=== PATIENT | male | born 2000 | race Caucasian/White ===

== ENCOUNTER 2024-11-25 21:00 | Emergency (ER) | payer BC, SELFPAY ==
[2024-11-25 21:43] VITALS: BP 135/89; PULSE 130; RESP 18; TEMP 37.1; O2SAT 96; BMI 26.6
[2024-11-25 22:32] LABS: PCR FLU A POSITIVE PCR FLU A (Negative); PCR FLU B Negative PCR FLU B (Negative); PCR RSV Negative PCR RSV (Negative); SARS PCR* Negative SARS-CoV-2 (Negative)
--- NOTE | 2024-11-25 22:36 | ED.GENADULT ---
HPI - General Adult General Time Seen by Provider: 22:36 Date Seen: 11/25/24 Chief complaint: Cough Stated complaint: cough/chest feels tight Time Seen by Provider: 11/25/24 22:36 Source: patient, RN notes reviewed and old records reviewed Mode of arrival: ambulatory Limitations: no limitations History of Present Illness HPI narrative: Israel is a very pleasant 24-year-old male with recent history as suspected pertusses a month ago who comes to the emergency room with onset of sore throat cough yesterday. He also notes he had a fever up to 101. He has not taken any ibuprofen because he states he is allergic to it. He is also not taken any Tylenol but is able to do that. He had an episode of vomiting earlier today, no evidence of diarrhea. He does not have a history of underlying asthma. Related Data Allergies Allergy/AdvReac Type Severity Reaction Status Date / Time ibuprofen AdvReac Severe Anaphylaxis Verified 11/25/24 21:49 Review of Systems Status of ROS: Reports: 10 or more systems reviewed and unremarkable except as noted in History and below Const: Reports: fever, chills and fatigue Eyes: Denies: change in vision ENMT: Reports: throat pain and nasal congestion; Denies: neck pain or hoarseness Cardio: Reports: chest pain and shortness of breath with exertion Resp: Reports: shortness of breath, cough and wheezing GI: Reports: abdominal pain, nausea and vomiting; Denies: diarrhea : Denies: painful urination Musculo: Denies: neck pain Integ/Breast: Denies: rash Neuro: Reports: headache; Denies: numbness in extremities Endo: Reports: fatigue Allergy/Immuno: Reports: wheezing PFSH PFSH Social History Smoking Status: Never smoker How often do you have a drink containing alcohol: never AUDIT-C Alcohol total score: 0 Non-prescribed substance use: denies use Exam Narrative: Exam Narrative: Alert and oriented. A notable cough when I enter the room. Eyes are clear. TMs without erythema or fluid. Oral cavity with moist mucous membranes. Neck is supple without lymphadenopathy. Heart is with a tachycardic rate but normal rhythm. Lung sounds show wheezing expiratory throughout. No obvious crackles. Abdomen soft nontender. Moving all extremities. Const: Vital Signs, click to edit/add: Vital Signs - 24 hr 11/25/24 21:43 Temperature 98.8 F Pulse Rate [Right Pulse Oximeter] 130 H Respiratory Rate 18 Blood Pressure [Ri ght Upper Arm] 135/89 Pulse Oximetry 96 Oxygen Delivery Me thod Room Air Documenting provider has reviewed patient's vital signs: yes Course Course ED Course: Patient had a chest x-ray and labs done prior to being seen. He has tested positive for influenza a, negative for COVID and RSV. His chest x-ray is without evidence of infiltrate. At this time will give him 1 g of Tylenol, Zofran 4 mg ODT as well as an albuterol nebulizer. Reevaluation(s) Reevaluation #1: Patient feeling a lot better after Tylenol and nebulizer. Re-examination of lung shows free air movement. Wheezing has resolved. Patient noted 1 episode of vomiting after the initial Zofran but has been able to keep water down since that time as well as some crackers. States he is feeling a lot better. Vital Signs Vital signs: Initial Vital Signs Temperature 98.8 F 11/25/24 21:43 Temperature Source Temporal Artery Scan 11/25/24 21:43 Pulse Rate 130 H 11/25/24 21:43 Pulse Rhythm Regular 11/25/24 21:43 Pulse Strength 3+ Normal 11/25/24 21:43 Respiratory Rate 18 11/25/24 21:43 Blood Pressure 135/89 11/25/24 21:43 Blood Pressure Mean 104 11/25/24 21:43 Blood Pressure Position Supine 11/25/24 21:43 Pulse Oximetry 96 11/25/24 21:43 Oxygen Delivery Method Room Air 11/25/24 21:43 Vital Signs Temperature 98.8 F 11/25/24 21:43 Pulse Rate 130 H 11/25/24 21:43 Respiratory Rate 18 11/25/24 21:43 Blood Pressure 135/89 11/25/24 21:43 Pulse Oximetry 96 11/25/24 21:43 Oxygen Delivery Method Room Air 11/25/24 21:43 Temperature 98.8 F 11/25/24 21:43 Pulse Rate 130 H 11/25/24 21:43 Respiratory Rate 18 11/25/24 21:43 Blood Pressure 135/89 11/25/24 21:43 Pulse Oximetry 96 11/25/24 21:43 Oxygen Delivery Method Room Air 11/25/24 21:43 Medications Administered Medications: Discontinued Medications Generic Name Dose Route Start Last Admin Trade Name Yessi PRN Reason Stop Dose Admin Acetaminophen 1,000 mg 11/25/24 22:43 11/25/24 23:25 Acetaminophen 500 Mg Tablet PO 11/25/24 22:44 1,000 mg ONCE ONE Administration Albuterol 2.5 mg 11/25/24 22:43 11/25/24 23:11 Albuterol Sulfate 2.5 Mg/3 Ml Vial.Neb NEB 11/25/24 22:44 2.5 mg ONCE ONE Administration Ondansetron HCl 4 mg 11/25/24 22:43 11/25/24 23:10 Ondansetron Odt 4 Mg Tab PO 11/25/24 22:44 4 mg ONCE ONE Administration Medical Decision Making MDM Narrative Medical decision making narrative: 1. Influenza a-discussed the use of Tamiflu. Symptoms started yesterday so clearly he is within a time frame that this would be therapeutic for him. Also discussed the use of Tylenol every 6 hours as needed for fever or discomfort. Importance of rest and pushing fluids also discussed. He has an albuterol inhaler at home that he may use as needed. Seek medical attention for worsening symptoms. Cautioned band about Tylenol use as he is unable to take ibuprofen. He would be limited to 4000 mg daily. Did discuss with him that medications such as NyQuil already have Tylenol and that he will need to read the bottles. 2. Nausea vomiting-Zofran did seem to work for him in the ED. Will dispense a few tablets for him to use at home. 3. Disposition-home at this time. Seek medical attention for worsening symptoms. Lab Data Lab results reviewed: Yes I reviewed the patient's lab results Labs: Lab Results 11/25/24 Range/Units 21:48 SARS-CoV-2 (PCR) Negative SARS-CoV-2 (Negative) Influenza Type A (PCR) POSITIVE PCR FLU A A (Negative) Influenza Type B (PCR) Negative PCR FLU B (Negative) RSV (PCR) Negative PCR RSV (Negative) Imaging Data Chest x-ray: Attestation: I have reviewed the pertinent imaging results. My impression: I do not note any infiltrates. Radiologist's impression: Mediastinum: The mediastinum is normal in appearance. The heart silhouette is normal in size and morphology. Lung: Both lungs are unremarkable in appearance. No sign of pleural effusion seen. No pneumothorax is identified. Bone and Soft tissue: Unremarkable for age. IMPRESSION: 1. No acute cardiopulmonary disease is seen. Discharge Plan Discharge Clinical Impression: Influenza A Patient Disposition: Home, Self-Care Condition: Improved Additional Instructions: Start Tamiflu, the antiviral medication for influenza tonight. Unfortunately, this can cause some nausea. You should be okay if you use the Zofran 1st. It is okay if you do not eat too need to push fluids as much as possible. Use your inhaler every 4 hours as needed. Return to the emergency room for worsening symptoms and as needed. Follow Up/Referrals: Provider,Not a Local [Primary Care Provider] - Stand Alone Forms: [email or web address] Info Instructions
[2024-11-25] MEDS: ONDANSETRON ODT 4 MG TAB PO (23:10)
[2024-11-25] MEDS: ALBUTEROL SULFATE 2.5 MG/3 ML VIAL.NEB NEB (23:11)
[2024-11-25] MEDS: ACETAMINOPHEN 500 MG TABLET 1000 MG PO (23:25)
== END 2024-11-25 23:55 | disposition home or self-care (01) ==
PROVIDERS: Emergency Provider Family Medicine
DX: J09.X2 Influenza due to identified novel influenza A virus with other respiratory manifestations (principal)
CPT/HCPCS: 71046; 87631; 94640; 99284; A9270

== ENCOUNTER 2024-12-23 13:30 | Emergency (ER) | payer OTHER, BC, SELFPAY ==
--- OUTSIDE RECORDS SUMMARY | 2024-12-23 13:33 | XMS_ITS | Clinical Summary ---
Author Organization [facility] [email or web address] [facility] Address [address] [address] Phone Care Team Providers Care Director Of Business Services Name Role Phone Unavailable Primary Care Provider Unavailabl e Allergies Active Allergy Reactions Criticality Noted Date Comments Ibuprofen Swelling Medium 12/09/2019 Medications No known medications Immunizations Name Administration Dates Next Due Influenza Quad Preservative Free 10/16/2020 Social History Tobacco Use Types Packs/Day Years Used Date Smoking Tobacco: Never Smokeless Tobacco: Current Chew Overall Financial Resource Strain (CARDIA) Answe r Date Recorded How hard is it for you to pa y for the very basics like food, housing, medical care, and heating? Not hard at all 10/16/2020 PHQ-2 Answer Date Recorded PHQ-2 Total 0 10/16/2020 Hunger Vital Sign Answer Date Recorded Within the past 12 months, y ou worried that your food would run out before you got the money to buy more. Never true 10/16/20 20 Within the past 12 months, t he food you bought just didn't last and you didn't have money to get more. Never true 10/16/2020 PRAPARE - Transportation Answer Date Re corded In the past 12 months, has l ack of transportation kept you from medical appointments or from getting medications? No 09/29 In the past 12 months, has l ack of transportation kept you from meetings, work, or from getting things needed for daily living? No 10/16/2020 Sex and Gender Information Value Date Recorded Sex Assigned at Not on file Legal Sex Male 10:30 PM [employer]SULTANT Gender Identity Not on file Sexual Orientation Not on file Obstetrics History Last Filed Vital Signs Vital Sign Reading Time Taken Comments Blood Pressure 122/76 10/16/2020 2:38 PM [employer] WORK[employer]SULTANT Pulse 72 10/16/2020 2:38 PM [employer] WORK[employer] CONSULTANT Temperature 36.7 C (98.1 F) 10/16/2020 2:38 PM [employer] WORK[employer] CONSULTANT Respiratory Rate 14 12/09/2019 10:39 PM [employer] WORK[employer] CONSULTANT Oxygen Saturation 96% 10/16/2020 2:38 PM [employer] WORK[employer] CONSULTANT Inhaled Oxygen Concentration - - Weight 65.5 kg (144 lb 6.4 oz) 10/16/2020 2:38 P M [employer] WORK[employer] CONSULTANT Height 173.4 cm (5' 8.25) 10/16/2020 2:38 PM CS T Body Mass Index 21.8 10/16/2020 2:38 PM [employer] WORK[employer] CONSULTANT Plan of Treatment Health Maintenance Due Date Last Done Comments HPV Vaccine (Standing Order) (1 - Male 3-dose series) 2017 Meningococcal B Vaccine (Sta nding Order) (1 of 2 - Standard) 2018 Hepatitis B Vaccine (Standin g Order) (1 of 3 - 19+ 3-dose series) 2021 PERTUSSIS (Standing Order) 2021 TETANUS (Standing Order) 2021 COVID-19 Vaccine (2023-2 5 season) 2024 Influenza Vaccine Seasonal (Standing Order) (#1) 2024 10/16/2020 Pneumococcal/PCV20 Vaccine: Pediatrics (2-5 yrs) and At-Risk Patients (6-49 yrs) (Standing Order) Aged Out No longer eligible b ased on patient's age to complete this topic Insurance [facility] Commercial Address: [facility] [address] [place] [address] [facility] Commercial Address: [facility] [id number] [place] [id number]
--- OUTSIDE RECORDS SUMMARY | 2024-12-23 13:33 | XMS_ITS | Clinical Summary ---
Author Organization [facility] Address [address] [place] [id number] Care Team Providers Care Associate Teacher Name Role Phone Clinic, [facility] Primary Care Pr ovider Allergies Active Allergy Reactions Criticality Noted Date Comments Ibuprofen Edema Medications No known medications Active Problems Problem Noted Date Diagnosed Date Closed fracture of distal en d of left radius with routine healing 03/14/2017 Encounters Date Type Department Care Team Description 12/23/2024 12:20 PM CHIP SILO TENDER Office Visit [facility] [address] [address] Breathing Problem; Occ Med (12/14/2023) 12/23/2024 Travel 11/14/2024 10:30 AM CHIP SILO TENDER Ancillary Procedure [facility] [address] [facility] [address] [place] [address] 11/14/2024 9:55 AM CHIP SILO TENDER Office Visit [facility] [address] [address] Julia Hood PA Cough (Going on for a month. ) 11/14/2024 Travel 11/14/2024 Nurse Triage [facility] [address] [place] [address] Pcp, No Cough from Last 3 Months Immunizations Name Administration Dates Next Due DTaP 06/28/2007, 3,2002,08/20,2002 HIB PRP-OMP (PedvaxHIB) 2002 HIB-HepB (Comvax) 01/23/2003,2002 Hepatitis B (Peds) 06/20/2014 Inactivated Polio Vaccine 06/28/2007,,2002,06/14 Influenza, IIV3 (Age 6-35 mos) 10/15/2003 MENINGOCOCCAL VACCINE 2 VIAL [id number] (MENVEO) 06/21/2018,06/20/2014 MMR 06/28/2007,05/12/2003 Pneumococcal conj 7-Valent (Prevnar 7) 1 ,2002,2002,06/14 Tdap 06/20/2014 Varicella Vaccine 06/20/2014,11/06/2012 Family History Medical History Relation Name Comments Good Health Brother Good Health Father Good Health Mother Good Health Sister Relation Name Status Comments Brother Father Mother Sister Social History Tobacco Use Types Packs/Day Years Used Date Smoking Tobacco: Some Days Cigarettes Smokeless Tobacco: Never Tobacco Cessation:Ready to Q uit: Not Asked; Counseling Given: Not Answered Comments:no exposure Alcohol Use Standard Drinks/Week Comments Yes 0 (1 standard drink = 0.6 oz pur e alcohol) PHQ-2 Answer Date Recorded PHQ-2 TOTAL SCORE 0 09/20/2021 Social Connections Answer Date Recorded Frequency of Communication with Friends and Fami ly Not on file 10/30/2021 Financial Resource Strain Answer Date R ecorded Difficulty of Paying Living Expenses Not on file 10/30/2021 Difficulty of Paying Living Expenses Not on file 10/30/2021 Sex and Gender Information Value Date Recorded Sex Assigned at Not on file Legal Sex Male 5:46 AM CHIP SILO TENDER Gender Identity Not on file Sexual Orientation Not on file Obstetrics History Last Filed Vital Signs Vital Sign Reading Time Taken Comments Blood Pressure 156/87 12/23/2024 12:59 PM CHIP SILO TENDER Pulse 89 12/23/2024 12:32 PM CHIP SILO TENDER Temperature 37.1 C (98.7 F) 12/23/2024 12:32 PM CHIP SILO TENDER Respiratory Rate 18 12/23/2024 12:32 PM CHIP SILO TENDER Oxygen Saturation 99% 12/23/2024 12:32 PM CHIP SILO TENDER Inhaled Oxygen Concentration - - Weight 81.6 kg (180 lb) 12/23/2024 12:32 PM CHIP SILO TENDER Height 173.4 cm (5' 8.25) 06/20/2018 1:07 PM CD T Body Mass Index - - Plan of Treatment Health Maintenance Due Date Last Done Comments HIV for age 15-65 2017 HPV series for age 9-26 (1 - Male 3-dose series) 2017 BMI (ht and wt on same day) for age 18+ 2020 Hepatitis C screening for ag e 18-79 2020 Pneumococcal series for age 6-49 (1 of 2 - PCV) 2021 07/30/2003, 2002, 2002, Additional history exists Depression screening for age 12+ 09/22/2022 09/22/2021, 09/22/2021, 09/20/2021, Additional history exists Tetanus booster 06/20/2024 06/20/2014 COVID-19 vaccine series ( season) 2024 Influenza for age 9-49 06/30/2024 Tdap Completed 06/20/2014 Procedures Procedure Name Priority Date/Time Associated Diagnosis Comments BORDETELLA PERTUSSIS TOXIN (PT) ANTIBODY (IGG), IMMUNOASSAY ([facility]) Routine 11/14/2024 10:59 AM CHIP SILO TENDER Acute cough XR CHEST 2 VIEWS PA AND LATERAL STAT 11/14/2024 10:33 AM CHIP SILO TENDER Acute cough from Last 3 Months Results * BORDETELLA PERTUSSIS TOXIN (PT) ANTIBODY (IGG), IMMUNOASSAY (QUEST) (11/14/2024 10:59 AM CHIP SILO TENDER) BORDETELLA PERTUSSIS TOXIN(PT) AB (IGG), IA <1 IU/mL [facility], Comment: REFERENCE RANGE:: Age (years) (IU/mL) IgG: < or = 10 <66 11-59 <43 > or = 60 <32 This assay cannot be used to assess protective immunity to pertussis because the specific antibodies and antibody levels that correlate with protection have not been well defined. The primary intent of the assay is to aid in the diagnosis of infection following natural exposure to Bordetella pertussis. The indicated PT IgG reference ranges reflect the 90th percentile of antibody levels in sera from healthy children and blood donors; thus, levels above the reference range suggest recent infection or vaccination within the last few months. This test was developed and its analytical performance characteristics have been determined by [facility]. It has not been cleared or approved by FDA. This assay has been validated pursuant to the CLIA regulations and is used for clinical purposes. For additional information, please refer to http://education.Memorandom/faq/XTR207. (This link is being provided for informational/ educational purposes only.) Blood BLOOD SPECIMEN / Unknown 11/14/2024 10:59 AM CHIP SILO TENDER 11/14/2024 11:00 AM CHIP SILO TENDER Narrative [facility] JANELLE - 11/18/2024 4:54 PM CHIP SILO TENDER FASTING:NO FASTING: NO Julia DAILEY SEND OUTS Final Re sult [facility]/Not iT [facility] [address] [place] [address], [facility] [place], [address] [place] [address] * XR CHEST 2 VIEWS PA AND LATERAL (11/14/2024 10:33 AM CHIP SILO TENDER) Anatomical Region Laterality Modality CHEST, THORAX, Lung, HEART Digit al Radiography 11/14/2024 10:4 0 AM CHIP SILO TENDER Narrative 11/14/2024 10:40 AM CHIP SILO TENDER For Patients: As a result of the 21st Century Cures Act, medical imaging exams and procedure reports are released immediately into your electronic medical record. You may view this report before your referring provider. If you have questions, please contact your health care provider. Indication: Acute cough Technique: Chest 2 views Comparison: Chest x-ray 11/07/2016 Findings/Impression: Cardiovascular and mediastinum: Heart size and vasculature are normal in caliber and appearance. Mediastinum is within normal limits. Lungs and pleural spaces: Lungs are clear. No sign of infiltrate or mass. No sign of pleural effusion. No pneumothorax. Bones and soft tissues: No significant findings. Dictated by Colten Tam MD @ 11/14/2024 10:40:34 AM (Electronically Signed) Procedure Note Colten Tam MD - 11/14/2024 For Patients: As a result of the Cures Act, medical imagingexams and procedure reports are released immediately into your electronicmedical record. You may view this report before your referring provider.If you have questions, please contact your health care provider. Indication: Acute cough Technique: Chest 2 views Comparison: Chest x-ray 11/07/2016 Findings/Impression: Cardiovascular and mediastinum: Heart size and vasculature are normal incaliber and appearance. Mediastinum is within normal limits. Lungs and pleural spaces: Lungs are clear. No sign of infiltrate ormass. No sign of pleural effusion. No pneumothorax. Bones and soft tissues: No significant findings. Dictated by Colten Tam MD @ 11/14/2024 10:40:34 AM (Electronically Signed) Julia DAILEY [facility] Final Re sult from Last 3 Months Insurance [facility] [employer] Care Teams Associate Teacher Relationship Specialty Start Date End Date Clinic, [facility] [address] [place] [address] PCP - General 11/14/24
[2024-12-23 13:56] VITALS: BP 153/92; PULSE 69; RESP 18; TEMP 37.3; O2SAT 99; BMI 26.4
[2024-12-23 15:48] VITALS: BP 164/104; PULSE 76; RESP 16; O2SAT 100
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
--- OUTSIDE RECORDS SUMMARY | 2024-12-23 16:06 | XMS_ITS | Clinical Summary ---
Author Organization [facility] Address [address] [place] [address] Care Team Providers Care Open Shank Coverer Name Role Phone Clinic, [facility] Primary Care Pr ovider Allergies Active Allergy Reactions Criticality Noted Date Comments Ibuprofen Edema Medications No known medications Active Problems Problem Noted Date Diagnosed Date Closed fracture of distal en d of left radius with routine healing 03/14/2017 Encounters Date Type Department Care Team Description 12/23/2024 12:20 PM STORE OPERATIONS ASSOCIATE Office Visit [facility] [address] [address] Charley Hook NP Breathing Problem; [facility] Med (12/14/2023) 12/23/2024 Travel 11/14/2024 10:30 AM STORE OPERATIONS ASSOCIATE Ancillary Procedure [facility] [address] [facility] [address] [place] [address] 11/14/2024 9:55 AM STORE OPERATIONS ASSOCIATE Office Visit [facility] [address] [address] Julia Hood PA Cough (Going on for a month. ) 11/14/2024 Travel 11/14/2024 Nurse Triage [facility] [address] [place] [address] Pcp, No Cough from Last 3 Months [...] on file Legal Sex Male 5:46 AM STORE OPERATIONS ASSOCIATE Gender Identity Not on file Sexual Orientation Not on file Obstetrics History Last Filed Vital Signs Vital Sign Reading Time Taken Comments Blood Pressure 156/87 12/23/2024 12:59 PM STORE OPERATIONS ASSOCIATE Pulse 89 12/23/2024 12:32 PM STORE OPERATIONS ASSOCIATE Temperature 37.1 C (98.7 F) 12/23/2024 12:32 PM STORE OPERATIONS ASSOCIATE Respiratory Rate 18 12/23/2024 12:32 PM STORE OPERATIONS ASSOCIATE Oxygen Saturation 99% 12/23/2024 12:32 PM STORE OPERATIONS ASSOCIATE Inhaled Oxygen Concentration - - Weight 81.6 kg (180 lb) 12/23/2024 12:32 PM STORE OPERATIONS ASSOCIATE Height 173.4 cm (5' 8.25) 06/20/2018 1:07 [...] (IGG), IMMUNOASSAY ([facility]) Routine 11/14/2024 10:59 AM STORE OPERATIONS ASSOCIATE Acute cough XR CHEST 2 VIEWS PA AND LATERAL STAT 11/14/2024 10:33 AM STORE OPERATIONS ASSOCIATE Acute cough from Last 3 Months Results * BORDETELLA PERTUSSIS TOXIN (PT) ANTIBODY (IGG), IMMUNOASSAY ([facility]) (11/14/2024 10:59 AM STORE OPERATIONS ASSOCIATE) BORDETELLA PERTUSSIS TOXIN(PT) AB (IGG), IA <1 IU/mL [facility], Comment: REFERENCE RANGE:: Age (years) (IU/mL) IgG: [...] analytical performance characteristics have been determined by [employer]. It has not been cleared or approved by FDA. This assay has been validated pursuant to the CLIA regulations and is used for clinical purposes. For additional information, please refer to http://education.World Reviewer/faq/UXI601. (This link is being provided for informational/ educational purposes only.) Blood BLOOD SPECIMEN / Unknown 11/14/2024 10:59 AM STORE OPERATIONS ASSOCIATE 11/14/2024 11:00 AM STORE OPERATIONS ASSOCIATE Narrative [facility] - 11/18/2024 4:54 PM STORE OPERATIONS ASSOCIATE FASTING:NO FASTING: NO Julia DAILEY SEND OUTS Final Re sult [facility] [address] [place] [address], [employer], [address] [place] [address] * XR CHEST 2 VIEWS PA AND LATERAL (11/14/2024 10:33 AM STORE OPERATIONS ASSOCIATE) Anatomical Region Laterality Modality CHEST, THORAX, Lung, HEART Digit al Radiography 11/14/2024 10:4 0 AM STORE OPERATIONS ASSOCIATE Narrative 11/14/2024 10:40 AM STORE OPERATIONS ASSOCIATE For Patients: As a result of the [...] For Patients: As a result of the Century Cures Act, medical imagingexams and procedure reports [...] Re sult from Last 3 Months Insurance [facility] [employer] Care Teams Open Shank Coverer Relationship Specialty Start Date End Date Clinic, [facility] [address] [place] [address] PCP - General 11/14/24
--- OUTSIDE RECORDS SUMMARY | 2024-12-23 16:07 | XMS_ITS | Clinical Summary ---
Author Organization [facility] [facility] Address [address] [address] Phone Care Team Providers Care General Manager In Training Name Role Phone Unavailable Primary Care Provider [...] on file Legal Sex Male 10:30 PM CUSTOMER RESOLUTION SPECIALIST Gender Identity Not on file Sexual Orientation Not on file Obstetrics History Last Filed Vital Signs Vital Sign Reading Time Taken Comments Blood Pressure 122/76 10/16/2020 2:38 PM CUSTOMER RESOLUTION SPECIALIST Pulse 72 10/16/2020 2:38 PM CUSTOMER RESOLUTION SPECIALIST Temperature 36.7 C (98.1 F) 10/16/2020 2:38 PM CUSTOMER RESOLUTION SPECIALIST Respiratory Rate 14 12/09/2019 10:39 PM CUSTOMER RESOLUTION SPECIALIST Oxygen Saturation 96% 10/16/2020 2:38 PM CUSTOMER RESOLUTION SPECIALIST Inhaled Oxygen Concentration - - Weight 65.5 kg (144 lb 6.4 oz) 10/16/2020 2:38 P M CUSTOMER RESOLUTION SPECIALIST Height 173.4 cm (5' 8.25) 10/16/2020 2:38 PM CS T Body Mass Index 21.8 10/16/2020 2:38 PM CUSTOMER RESOLUTION SPECIALIST Plan of Treatment Health Maintenance Due Date [...] patient's age to complete this topic Insurance [facility]
[2024-12-23 16:13] VITALS: BP 150/107; PULSE 61; RESP 18; TEMP 36.9; O2SAT 98
== END 2024-12-23 16:17 | disposition home or self-care (01) ==
LOC: ED 16:05
PROVIDERS: Emergency Provider Emergency Medicine Emergency Medical Services
DX: Z71.1 Person with feared health complaint in whom no diagnosis is made (principal)
CPT/HCPCS: 99282; 99283; 99284

== ENCOUNTER 2025-02-18 15:50 | Emergency (ER) | payer BC, SELFPAY ==
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
--- OUTSIDE RECORDS SUMMARY | 2025-02-18 15:52 | XMS_ITS | Clinical Summary ---
Author Organization [facility] [employer] - innovate | mentor | invest [facility] Address [address] [address] Phone Care Team Providers Care Patternmaker All Around Name Role Phone Unavailable Primary Care Provider [...] on file Legal Sex Male 10:30 PM TOWEL HEMMER Gender Identity Not on file Sexual Orientation Not on file Obstetrics History Last Filed Vital Signs Vital Sign Reading Time Taken Comments Blood Pressure 122/76 10/16/2020 2:38 PM TOWEL HEMMER Pulse 72 10/16/2020 2:38 PM TOWEL HEMMER Temperature 36.7 C (98.1 F) 10/16/2020 2:38 PM TOWEL HEMMER Respiratory Rate 14 12/09/2019 10:39 PM TOWEL HEMMER Oxygen Saturation 96% 10/16/2020 2:38 PM TOWEL HEMMER Inhaled Oxygen Concentration - - Weight 65.5 kg (144 lb 6.4 oz) 10/16/2020 2:38 P M TOWEL HEMMER Height 173.4 cm (5' 8.25) 10/16/2020 2:38 PM CS T Body Mass Index 21.8 10/16/2020 2:38 PM TOWEL HEMMER Plan of Treatment Health Maintenance Due Date [...] patient's age to complete this topic Insurance [facility] Commercial Address: [facility] [address] [place] [address] [facility] Commercial Address: [facility] [id number] [place] [id number] "
[2025-02-18 15:57] VITALS: BP 155/88; PULSE 63; RESP 16; TEMP 36.7; O2SAT 100; BMI 27.3
--- NOTE | 2025-02-18 16:20 | CRLHL7_ITS ---
For Patients: As a result of the Century Cures Act, medical imaging exams and procedure reports are released immediately into your electronic medical record. You may view this report before your referring provider. If you have questions, please contact your health care provider. Indication: LEFT SIDED CHEST PAIN Technique: PA and lateral views of the chest. Comparison: 11/25/2024. Findings: Low lung volumes. Normal cardiomediastinal silhouette. No focal consolidation, pleural effusions, or visualized pneumothorax. Impression: No acute cardiopulmonary disease. Dictated by Gavin Kong MD @ 02/18/2025 5:31:23 PM (Electronically Signed)
--- NOTE | 2025-02-18 16:21 | ED_ITS ---
HPI - Chest Pain General Date Seen: 02/18/25 Chief Complaint: Chest Pain Stated Complaint: Chest pains in left side Time Seen by Provider: 02/18/25 15:52 Source: patient Mode of arrival: ambulatory Limitations: no limitations History of Present Illness HPI narrative: Patient is a 24-year-old male presenting to the emergency department for left- sided chest pain. 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 His form and brought him to urgent care where an EKG was done they thought there was some abnormalities so he was sent to the emergency department. States the pain seems to be getting better at this time. Pain seems to be in his left lower chest below his breast and into his left mid axillary region. Denies having pain like this before. No history of blood clots. No lower extremity edema. Denies hemoptysis. No recent travel. No history of cancer or recent surgeries. Denies hormone use. Has not noticed the pain radiating anywhere. Nothing seems to make the pain better or worse. No other concerns noted. Denies shortness of breath, lightheadedness, dizziness, abdominal pain, headache, vision changes, weakness, numbness. Related Data Home Medications ?Medication ?Instructions ?Recorded ?Confirmed No Known Home Medications 02/18/25 02/18/25 Allergies Allergy/AdvReac Type Severity Reaction Status Date / Time ibuprofen AdvReac Severe Anaphylaxis Verified 11/25/24 21:49 Review of Systems Status of ROS Reports: 10 or more systems reviewed and unremarkable except as noted in History and below [facility] Social History Smoking Status: Never smoker Do you use any of these nicotine containing products: Vaping Products How often do you have a drink containing alcohol: 2-4 times a month AUDIT-C Alcohol total score: 2 Non-prescribed substance use: denies use Exam Narrative Exam Narrative: Const: Well-nourished, Well-developed, in mild distress Eyes: PERRL, no conjunctival injection, and symmetrical lids HENT: Atraumatic external nose and ears. Moist mucous membranes. Neck: Symmetric, trachea midline, No thyromegaly. CVS: RRR, No murmurs or gallops. Peripheral pulses 2+ and equal in all extremities RESP: Unlabored respiratory effort. Clear to auscultation bilaterally. GI: Nontender/Nondistended, No rebound or guarding. MSK:Extremities w/o deformity, Normal Active ROM, tenderness to palpation left mid axillary line about rib space 7 that produces a somewhat similar pain Skin: Warm, Dry. No rashes or lesions. Neuro: Normal Muscle tone, No focal neurological deficits. Psych: Awake, Alert, & Oriented x3. Appropriate mood and affect. Const Vital Signs, click to edit/add: Vital Signs - 24 hr 02/18/25 15:57 Temperature 98.1 F Pulse Rate [Pulse Oximeter] 63 Respiratory Rate 16 Blood Pressure [Right Upper Arm] 155/88 H Pulse Oximetry 100 Oxygen Delivery Method Room Air Course Vital Signs Vital signs: Initial Vital Signs Temperature 98.1 F 02/18/25 15:57 Temperature Source Temporal Artery Scan 02/18/25 15:57 Pulse Rate 63 02/18/25 15:57 Respiratory Rate 16 02/18/25 15:57 Blood Pressure 155/88 H 02/18/25 15:57 Blood Pressure Mean 110 H 02/18/25 15:57 Pulse Oximetry 100 02/18/25 15:57 Oxygen Delivery Method Room Air 02/18/25 15:57 Vital Signs Temperature 98.1 F 02/18/25 15:57 Pulse Rate 63 02/18/25 15:57 Respiratory Rate 16 02/18/25 15:57 Blood Pressure 155/88 H 02/18/25 15:57 Pulse Oximetry 100 02/18/25 15:57 Oxygen Delivery Method Room Air 02/18/25 15:57 Temperature 98.1 F 02/18/25 15:57 Pulse Rate 63 02/18/25 15:57 Respiratory Rate 16 02/18/25 15:57 Blood Pressure 155/88 H 02/18/25 15:57 Pulse Oximetry 100 02/18/25 15:57 Oxygen Delivery Method Room Air 02/18/25 15:57 MDM - Chest Pain MDM Narrative Medical decision making narrative: Patient is a 24-year-old male presenting to the emergency department for chest pain. The differential diagnosis of chest pain is broad and includes common etiologies such as musculoskeletal strain, GERD, pneumonia, etc. More serious etiologies considered include PE, coronary artery disease, pneumothorax, aortic dissection, aortic aneurysm. He is PERC negative and PE can not be ruled out. He looks well an aortic dissection and aortic aneurysm seem unlikely. I am unsure what this abnormality on his previous EKG was by will repeat EKG in or troponin here. Will also do a CBC and BMP. Chest x-ray ordered to look for pneumonia and or pneumothorax. Lab work returned showing no concerning abnormalities. EKG shows no concerning findings. The is some benign early repolarization in V2 which is non concerning for young men. Troponin within normal limits. Do not believe repeat troponin is necessary as symptoms have been going on for almost 12 hours now. Chest x- ray reviewed myself the radiologist shows no acute concerning abnormalities. This some a do not know exactly was causing his pain does not appear to be anything emergent. Lab Data Labs: Lab Results 02/18/25 02/18/25 Range/Units 16:20 17:11 WBC 9.50 (4.50-11.00) K/uL RBC 4.76 (4.30-5.90) m/uL Hgb 14.1 (13.5-17.5) gm/dL Hct 42.2 (37.0-53.0) % MCV 89 (80-100) fL MCH 30 (26-34) pg MCHC 33 (32-36) gm/dL RDW Coeff of Zoe 12.4 (11.5-15.5) % Plt Count 282 (140-440) K/uL Neut % (Auto) 56.1 (42.0-72.0) % Lymph % (Auto) 30.7 (20-44) % [place] % (Auto) 8.4 (0.0-11.0) % Eos % (Auto) 4.3 (0.0-7.0) % Baso % (Auto) 0.4 (0.0-3.0) % Neut # (Auto) 5.32 (1.7-7.0) K/uL Lymph # (Auto) 2.92 H (0.90-2.90) K/uL [place] # (Auto) 0.80 (0.00-0.90) K/UL Eos # (Auto) 0.41 (0.00-0.50) K/uL Baso # (Auto) 0.04 (0.00-0.30) K/uL Abs Immat Gran (auto) 0.01 (0.00-0.30) K/uL Imm/Tot Granulo (auto) 0.1 % Sodium 138 (135-149) mmol/L Potassium 4.3 (3.6-5.1) mmol/L Chloride 102 (96-114) mmol/L Carbon Dioxide 24 (20-32) mmol/L Anion Gap 12 (7-15) mEq/L BUN 10 (5-24) mg/dL Creatinine 0.7 (0.5-1.5) mg/dL Estimated Creat Clear 165.53 Estimated GFR 134 ml/min Glucose 98 (60-115) mg/dL Calcium 9.5 (8.4-10.6) mg/dL POC Troponin I 0.00 L (0.01-0.04) ng/ml Imaging Data Chest x-ray: Attestation: I have reviewed the pertinent imaging results. Radiologist's impression: No acute cardiopulmonary disease. Dictated by Gavin Kong MD @ 02/18/2025 5:31:23 PM ECG Data Attestation: I personally reviewed and interpreted this ECG as follows: Prior ECG tracings: not available for review Interpretation: Sinus bradycardia with a rate of 59 beats per minute, normal intervals, normal axis, no ST or T-wave abnormalities. Discharge Plan Discharge Clinical Impression: Atypical chest pain Patient Disposition: Home, Self-Care Condition: Stable Instructions: Noncardiac Chest Pain (ED) Additional Instructions: I do not see acute concerning abnormalities on your exam at this time. I cannot say exactly what is causing your pain but it is very unlikely to be anything emergent. Return to emergency department for new or worsening symptoms Prescriptions: No Action No Known Home Medications Follow Up/Referrals: Provider,Not a Local [Primary Care Provider] - Stand Alone Forms: [employer] Info Instructions
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
--- OUTSIDE RECORDS SUMMARY | 2025-02-18 16:29 | XMS_ITS | Clinical Summary ---
Author Organization 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 Gender Identity Not on file Sexual Orientation Not on file Obstetrics History Last Filed Vital Signs Vital Sign Reading Time Taken Comments Blood Pressure 122/76 10/16/2020 2:38 PM BIN OPERATOR Pulse 72 10/16/2020 2:38 PM BIN OPERATOR Temperature 36.7 C (98.1 F) 10/16/2020 2:38 PM BIN OPERATOR Respiratory Rate 14 12/09/2019 10:39 PM BIN OPERATOR Oxygen Saturation 96% 10/16/2020 2:38 PM BIN OPERATOR Inhaled Oxygen Concentration - - Weight 65.5 kg (144 lb 6.4 oz) 10/16/2020 2:38 P M BIN OPERATOR Height 173.4 cm (5' 8.25) 10/16/2020 2:38 PM CS T Body Mass Index 21.8 10/16/2020 2:38 PM BIN OPERATOR Plan of Treatment Health Maintenance Due Date [...] patient's age to complete this topic Insurance [facility] Commercial Address: [facility] [address] [place] [address] [facility] Commercial Address: [facility] [id number] [place] [id number]
[2025-02-18 17:19] LABS: Basophils Absolute Auto 0.04 K/uL (0.00-0.30); Basophils Percent Auto 0.4 % (0.0-3.0); Eosinophils Absolute Auto 0.41 K/uL (0.00-0.50); Eosinophils Percent Auto 4.3 % (0.0-7.0); Hematocrit 42.2 % (37.0-53.0); Hemoglobin* 14.1 gm/dL (13.5-17.5); Immature Granulocytes Abs Auto 0.01 K/uL (0.00-0.30); Immature Granulocytes Pct Auto 0.1 %; Lymphocytes Absolute Auto 2.92 K/uL (0.90-2.90); Lymphocytes Percent Auto 30.7 % (20-44); Mean Corpuscular HGB Conc 33 gm/dL (32-36); Mean Corpuscular Hemoglobin 30 pg (26-34); Mean Corpuscular Volume 89 fL (80-100); Monocytes Percent Auto 8.4 % (0.0-11.0); Neutrophils Absolute Auto 5.32 K/uL (1.7-7.0); Neutrophils Percent Auto 56.1 % (42.0-72.0); Platelet Count* 282 K/uL (140-440); RDW Coefficient of Variation % 12.4 % (11.5-15.5); Red Blood Count 4.76 m/uL (4.30-5.90)
[2025-02-18 17:32] LABS: Chloride* 102 mmol/L (96-114); Slide Review Reflex No
[2025-02-18 17:33] LABS: Potassium* 4.3 mmol/L (3.6-5.1); Sodium* 138 mmol/L (135-149)
[2025-02-18 17:36] LABS: Anion Gap 12 mEq/L (7-15); Blood Urea Nitrogen* 10 mg/dL (5-24); Calcium* 9.5 mg/dL (8.4-10.6); Carbon Dioxide* 24 mmol/L (20-32); Creatinine* 0.7 mg/dL (0.5-1.5); Est. Creatinine Clearance* 165.53; Estimated Glomerular Filt Rate 134 ml/min; Glucose* 98 mg/dL (60-115)
[2025-02-18 18:19] VITALS: BP 152/95; PULSE 66; RESP 18; TEMP 37.1; O2SAT 100
== END 2025-02-18 18:22 | disposition home or self-care (01) ==
PROVIDERS: Emergency Provider Student in an Organized Health Care Education/Training Program
DX: R07.9 Chest pain, unspecified (principal)
CPT/HCPCS: 36415; 71046; 80048; 84484; 85025; 93005; 99284